=== PATIENT | male | born 1985 | race Caucasian/White ===

== ENCOUNTER 2018-06-16 14:41 | Inpatient (IN) | payer OTHER ==
[~2018-06-16] VITALS: Ht 175.3 cm; Wt 92.5 kg
--- NOTE | ~2018-06-16 | CON ---
[address] [address] CONSULTATION Name: NOEMI PANTOJA Room: [address] IN M.R.#: [id number] Admission: 06/16/18 Attend Phys: Humaira Holley MD Discharge: 06/17/18 Date of : 85 Report #: [id number] THIS REPORT FOR: //name// CC: [facility] physician/PCP Humaira Holley DATE OF SERVICE: 06/17/2018 HISTORY OF PRESENT ILLNESS: This is a 33-year-old male patient who was evaluated by me for seizures. This patient gives a history that he started having this seizure as a child. Initially, they were absent seizure and then they were generalized seizure. He used to see a neurologist. He said he does not know who the neurologist was. She indicated he had an MRI, which was unremarkable. His seizures were controlled with Depakote and then he could not afford the medication. He has not taken any medication for 3 years and he intermittently has seizure. He just stays home because he cannot afford any medical treatment. He came to Emergency Room and they started him on Keppra. He has no side effects from Keppra and he has not had any further seizure either. His seizure prior to this was about 8 months ago. REVIEW OF SYSTEMS: Indicate that he does have a history of seizure. He smokes marijuana, but does not do any other drugs. He has a known history of seizure with the workup in the past, which is not available to me. He does have a history of ADHD and bipolar. REVIEW OF SYSTEMS: A 14-point review of system was carried out and this was his relevant 14-point review of system. PAST MEDICAL HISTORY: Positive for seizure. FAMILY HISTORY: Negative for any early age stroke. SOCIAL HISTORY: He smokes, but does not drink any alcohol. PHYSICAL EXAMINATION: Indicate he is alert, responsive, able to follow simple and complex command. His speech, concentration, fund of knowledge and memory is at his baseline. Cranial nerve examination 2-12 looks unremarkable. He has symmetrical strength, sensation, reflexes and tone in all 4 extremities. There is no meningeal sign. There is no carotid bruit. I could not have a very good look at the patient's fundus, but I do not think there is any papilledema. There is no meningeal sign. There is no cerebellar sign. He is thinly built individual who does not have any dysmorphic features of eyes, ears and face. His last blood pressure was 88/46, respirations 16, pulse is 53, temperature is 97.8. LABORATORY DATA: Indicate a normal white count. Sodium is 143. [place] [address] CONSULTATION Name: NOEMI PANTOJA Room: [address] IN M.R.#: [id number] Admission: 06/16/18 Attend Phys: Humaira Holley MD Discharge: 06/17/18 Date of : 85 Report #: [id number] 8.4. He did have a CT scan of the head and C-spine, which was unremarkable. He indicates he had an MRI of the brain and that was also unremarkable. IMPRESSION: Seizure disorder because of noncompliance. RECOMMENDATION: 1. Since he is already on Keppra, I will leave him on Keppra and see how he does with it. 2. I did discuss with him that we can switch him to Depakote. He wants to try Keppra because he does not have to get the blood drawn. 3. We will see what further workup needs to be done and when was his MRI done and may like to repeat it depending upon when it was done. He is trying to find out from his mother and I also discussed with Dr. Holley. By: [id number] Richards MD /nt
--- NOTE | ~2018-06-16 | EEG ---
[address] [address] EEG STUDY REPORT Name: NOEMI PANTOJA Room: [address] IN [facility]#: [id number] Admission: 06/16/18 Attend Phys: Humaira Holley MD Discharge: Date of : 85 Report #: [id number] THIS REPORT FOR: //name// CC: FAM physician/PCP Humaira Holley DATE OF SERVICE: 06/17/2018 This patient is being evaluated for seizure. EEG was done by placing the electrode by standard 10-20 system of electrode placement. Both referential and sequential montages were used for recording. Background activity in this patient's EEG is about 10 Hz and 30 microvolt. The patient went to sleep that was associated with bilateral slowing and vertex sharp waves. Hyperventilation was unremarkable. The patient has repeated episode of polyspike activities which was generalized. IMPRESSION: This is an abnormal EEG, which would be consistent with a diagnosis of seizure disorder. Thank you very much for this referral. By: [id number] Richards MD /nt
[~2018-06-16 14:41] MED LIST: DEPAKOTE250 MG PO; DILANTIN100 MG PO
[2018-06-16 14:46] VITALS: BP 107/44
[2018-06-16] MEDS ORDERED: DEPAKOTE125 MG PO (14:53)
[2018-06-16 15:12] LABS: ABSOLUTE LYMPHOCYTES 1.6 thou/uL (0.8-5.3); ABSOLUTE MONOCYTES 0.4 thou/uL (0.0-1.2); ABSOLUTE NEUTROPHILS 6.1 thou/uL (1.6-8.1); BASOPHILS 0.3 %; EOSINOPHILS 0.5 %; HEMATOCRIT 40.8 % (42.0-52.0); HEMOGLOBIN 13.6 gm/dL (14.0-18.0); LYMPHOCYTES 19.7 %; MCH 31.3 pg (26.0-34.0); MCHC 33.3 g/dL (28.0-37.0); MCV 93.9 fL (80.0-100.0); MONOCYTES 4.5 %; MPV 7.6 fl. (7.2-11.1); NUCLEATED RBCS 0 /100WBC; PLATELET COUNT* 313 thou/uL (150-400); RBC 4.34 mil/uL (4.50-6.00); RDW-CV 13.2 % (10.5-14.5); WBC 8.1 thou/uL (4.0-11.0)
[2018-06-16 15:36] LABS: ANION GAP 6 mmol/L (7-16); BUN 12 mg/dL (7-18); CALCIUM 9.1 mg/dL (8.5-10.1); CHLORIDE 103 mmol/L (98-107); CO2 25 mmol/L (21-32); CREATININE 1.2 mg/dL (0.6-1.3); GLUCOSE 124 mg/dL (70-99); POTASSIUM 3.8 mmol/L (3.5-5.1); SODIUM 134 mmol/L (136-145); TROPONIN-I LEVEL <0.06 ng/mL (<0.06)
[2018-06-16 15:40] LABS: ALKALINE PHOSPHATASE 63 U/L (46-116); SGOT 16 U/L (15-37); SGPT 16 U/L (30-65); TOTAL BILIRUBIN 0.4 mg/dL (<0.1-1.0); TOTAL PROTEIN 7.4 g/dL (6.4-8.2)
--- NOTE | 2018-06-16 16:13 | EKG ---
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
[2018-06-16 16:28] LABS: AMP/METHAMP Negative (Negative); BARBITURATES Negative (Negative); BENZODIAZEPINES Negative (Negative); COCAINE Negative (Negative); METHADONE Negative (Negative); OPIATES Negative (Negative); PCP Negative (Negative); THC POSITIVE (Negative)
--- NOTE | 2018-06-16 16:38 | NUR ---
PT HAD A SEIZURE LASTING APPROXIMATLY 90 SECONDS. IV LORAZEPAM WAS ADMINISTERED.
--- NOTE | 2018-06-16 18:58 | NUR ---
PT ADMITTED FROM ED WITH SEIZURES. PT C/O SHOULDER PAIN. PT ORIENTED TO ROOM, CALL LIGHT IN REACH
[2018-06-16 19:02] VITALS: BP 102/51
[2018-06-16 19:08] VITALS: BP 102/51
[2018-06-16 20:00] VITALS: BP 95/58
[2018-06-17] VITALS: BP 93/53
--- NOTE | 2018-06-17 00:54 | NUR ---
PT ALERT ORIENTED. PT STATES HE IS SUPPOSE TO TAKE DEPAKOTE BUT HAS NOT FOR THE LAST 3 YEARS DUE TO FINANCIAL PROBLEMS. PT TAKES NO HOME MEDICATIONS. TELEMETRY SHOWS SR. ROOM KEPT WITH LOW LIGHTING, AT BED SIDE. PT STATES R SHOULDER HURTS WITH MOVEMENT. DR SANTOS NOTIFIED. TYLENOL ORDERED FOR PAIN. NS AT 100MLS/HR.
--- NOTE | 2018-06-17 03:16 | NUR ---
RESTING QUIETLY. PT SLEEPING EACH TIME NURSE ROUNDS. AT BS TOLD TO CALL NURSE IF PT NEEDS TYLENOL FOR PAIN. SEIZURE PRECAUTIONS IN PLACE.
[2018-06-17 04:00] VITALS: BP 94/52
[2018-06-17 05:00] LABS: CALCIUM 8.4 mg/dL (8.5-10.1); POTASSIUM 3.6 mmol/L (3.5-5.1)
[2018-06-17 05:35] LABS: URINE BILIRUBIN NEGATIVE (Negative); URINE BLOOD NEGATIVE (Negative); URINE CLARITY CLEAR; URINE COLOR YELLOW; URINE GLUCOSE-RANDOM NEGATIVE (Negative); URINE KETONES NEGATIVE (Negative); URINE LEUKOCYTES-REFLEX NEGATIVE (Negative); URINE NITRITE-REFLEX NEGATIVE (Negative); URINE PROTEIN 1+ (Negative); URINE SPECIFIC GRAVITY >= 1.030 (1.005-1.030); URINE UROBILINOGEN 0.2 E.U./dl (0.2-1.0)
[2018-06-17 08:05] VITALS: BP 88/46
--- NOTE | 2018-06-17 11:01 | NUR ---
ASSUMED CARE OF PT AT 0730. PT RESTING IN BED. PT A&0X4, COMPLAINS OF PAIN TO RIGHT SHOULDER. TREATED WITH PRN TYLENOL WITH PARTIAL RELIEF. PT TRACING SB WITH PAC'S ON THE SOFTWARE SPECIALIST. ON RA SAT UPPER 90'S. PT DENIES ANY SHORTNESS OF BREATH. AND SON AT BEDSIDE. IVF. PT UP SBA TO BATHROOM. PT GOAL FOR TODAY IS NEURO CONSULT IN PLACE AND REMAIN FREE FROM SEIZURES. AM ASSESSMENT CHARTED. MEDICATIONS PER JUN. PT REPOSITIONS SELF. HOURLY ROUNDING OBSERVED. BED IN LOW POSITION. BED ALARM IN PLACE. FALL PRECAUTIONS IN PLACE. SEIZURE PRECAUTIONS IN PLACE. CALL LIGHT WITHIN REACH. WILL CONTINUE PLAN OF CARE.
[2018-06-17 11:13] VITALS: BP 86/66
[2018-06-17] MEDS ORDERED: KEPPRA 500 MG500 M1 PO (11:28)
[2018-06-17 11:41] VITALS: BP 86/66
--- NOTE | 2018-06-17 11:42 | NUR ---
Pt is A&O. Resides at home with his and kids. Independent and active. No DME. No hx of HH or SNF. Goal is home at nm. Following.
[2018-06-17 15:48] VITALS: BP 80/57
--- NOTE | 2018-06-17 18:31 | NUR ---
NEURO SEEN PT TODAY. ORDERS RECEIVED FOR MRI AND EEG. REFER TO RESULTS. DISCHARGE ORDERS RECEIVED. DISCHARGE INSTRUCTIONS, CARE NOTES, SCRIPTS AND FOLLOW UP APPTS GIVEN TO PT. PT COMMUNICATES UNDERSTANDING OF DISCHARGE TEACHING. IV AND SCANNER OPERATOR REMOVED. PT DISCHARGED WITH ALL BELONGINGS AND PAPERWORK VIA WHEELCHAIR WITH NURSING STAFF TO SPOUSE OWN PERSONAL VEHICLE.
== END 2018-06-17 18:40 | disposition home or self-care (01) | DRG 101 ==
LOC: M.ERS 14:41 → M.TBA-ER 17:03 → M.2W 17:03
PROVIDERS: Family Medicine; ADMIT Family Medicine
DX: G40.909 Epilepsy, unspecified, not intractable, without status epilepticus (principal); F31.9 Bipolar disorder, unspecified; N18.2 Chronic kidney disease, stage 2 (mild); F90.9 Attention-deficit hyperactivity disorder, unspecified type; F17.210 Nicotine dependence, cigarettes, uncomplicated; Z91.14 Patient's other noncompliance with medication regimen; Z23 Encounter for immunization

== ENCOUNTER 2018-10-28 17:32 | Emergency (ER) | payer OTHER ==
[~2018-10-28] VITALS: Ht 175.3 cm; Wt 72.6 kg
[~2018-10-28 17:32] MED LIST changes: +DEPAKOTE125 MG PO; +KEPPRA 500 MG500 M1 PO
[2018-10-28] MEDS ORDERED: NAPROSYN500 MG PO (19:11)
[2018-10-28 19:19] VITALS: BP 112/62
== END 2018-10-28 19:20 | disposition home or self-care (01) ==
LOC: M.ERS 17:32
DX: S06.0X0A Concussion without loss of consciousness, initial encounter (principal); S01.01XA Laceration without foreign body of scalp, initial encounter; F31.9 Bipolar disorder, unspecified; F90.9 Attention-deficit hyperactivity disorder, unspecified type; W20.8XXA Other cause of strike by thrown, projected or falling object, initial encounter; Y93.89 Activity, other specified; Y92.89 Other specified places as the place of occurrence of the external cause; Y99.8 Other external cause status

== ENCOUNTER 2019-03-17 22:24 | Emergency (ER) | payer OTHER ==
[~2019-03-17] VITALS: Ht 175.3 cm; Wt 72.6 kg
[~2019-03-17 22:24] MED LIST changes: +NAPROSYN500 MG PO
[2019-03-17 23:19] LABS: ABSOLUTE LYMPHOCYTES 0.8 thou/uL (0.8-5.3); ABSOLUTE MONOCYTES 0.9 thou/uL (0.0-1.2); ABSOLUTE NEUTROPHILS 8.9 thou/uL (1.6-8.1); BASOPHILS 0.2 %; HEMATOCRIT 42.9 % (42.0-52.0); HEMOGLOBIN 14.9 gm/dL (14.0-18.0); LYMPHOCYTES 7.5 %; MCH 31.9 pg (26.0-34.0); MCHC 34.6 g/dL (28.0-37.0); MCV 92.1 fL (80.0-100.0); MONOCYTES 8.4 %; MPV 7.5 fl. (7.2-11.1); NUCLEATED RBCS 0 /100WBC; PLATELET COUNT* 340 thou/uL (150-400); POLYS 83.9 %; RBC 4.66 mil/uL (4.50-6.00); RDW-CV 12.8 % (10.5-14.5); WBC 10.6 thou/uL (4.0-11.0)
[2019-03-17 23:24] LABS: CALCIUM 9.2 mg/dL (8.5-10.1); CREATININE 1.1 mg/dL (0.6-1.3); POTASSIUM 3.7 mmol/L (3.5-5.1)
[2019-03-17 23:26] LABS: URINE BILIRUBIN NEGATIVE (Negative); URINE BLOOD NEGATIVE (Negative); URINE CLARITY CLEAR; URINE COLOR YELLOW; URINE GLUCOSE-RANDOM NEGATIVE (Negative); URINE KETONES NEGATIVE (Negative); URINE LEUKOCYTES-REFLEX NEGATIVE (Negative); URINE NITRITE-REFLEX NEGATIVE (Negative); URINE PROTEIN NEGATIVE (Negative); URINE SPECIFIC GRAVITY >= 1.030 (1.005-1.030); URINE UROBILINOGEN 0.2 E.U./dl (0.2-1.0)
[2019-03-17 23:28] LABS: ALBUMIN 3.9 g/dL (3.4-5.0); TOTAL BILIRUBIN 0.6 mg/dL (<0.1-1.0)
[2019-03-17 23:32] LABS: AMP/METHAMP Negative (Negative); BARBITURATES Negative (Negative); BENZODIAZEPINES Negative (Negative); COCAINE Negative (Negative); METHADONE Negative (Negative); OPIATES Negative (Negative); PCP Negative (Negative); THC POSITIVE (Negative)
[2019-03-17 23:55] LABS: INFLUENZA A ANTIGEN Negative (Negative); INFLUENZA B ANTIGEN Negative (Negative)
[2019-03-18] MEDS ORDERED: ZOFRAN ODT4 MG PO (00:42)
[2019-03-18] MEDS ORDERED: HYDROCODON-ACE1 EAC7 PO (00:42)
[2019-03-18 01:36] VITALS: BP 95/59
== END 2019-03-18 01:36 | disposition home or self-care (01) ==
LOC: M.ERS 22:24
PROVIDERS: Personal Emergency Response Attendant
DX: A08.4 Viral intestinal infection, unspecified (principal); R11.2 Nausea with vomiting, unspecified; F31.9 Bipolar disorder, unspecified; F90.9 Attention-deficit hyperactivity disorder, unspecified type; Z79.899 Other long term (current) drug therapy

== ENCOUNTER 2020-06-10 21:12 | Inpatient (IN) | payer OTHER ==
[~2020-06-10] VITALS: Ht 175.3 cm; Wt 70.3 kg
[~2020-06-10 21:12] MED LIST changes: +HYDROCODON-ACE1 EAC7 PO; +ZOFRAN ODT4 MG PO
[2020-06-10 21:17] VITALS: BP 94/44
[2020-06-10 21:50] LABS: HEMATOCRIT 39.5 % (42.0-52.0); HEMOGLOBIN 13.2 gm/dL (14.0-18.0); MCH 30.8 pg (26.0-34.0); MCHC 33.5 g/dL (28.0-37.0); MCV 92.1 fL (80.0-100.0); MPV 6.7 fl. (7.2-11.1); NUCLEATED RBCS 0 /100WBC; PLATELET COUNT* 282 thou/uL (150-400); RBC 4.29 mil/uL (4.50-6.00); WBC 16.7 thou/uL (4.0-11.0)
[2020-06-10 21:56] LABS: URINE BILIRUBIN NEGATIVE (Negative); URINE BLOOD NEGATIVE (Negative); URINE CLARITY CLEAR; URINE COLOR YELLOW; URINE GLUCOSE-RANDOM NEGATIVE (Negative); URINE KETONES NEGATIVE (Negative); URINE LEUKOCYTES-REFLEX NEGATIVE (Negative); URINE NITRITE-REFLEX NEGATIVE (Negative); URINE PROTEIN NEGATIVE (Negative); URINE UROBILINOGEN 0.2 E.U./dl (0.2-1.0)
[2020-06-10 21:59] LABS: CALCIUM 9.6 mg/dL (8.5-10.1); CREATININE 1.3 mg/dL (0.6-1.3); POTASSIUM 4.1 mmol/L (3.5-5.1)
[2020-06-10 22:03] LABS: ALBUMIN 4.1 g/dL (3.4-5.0); TOTAL BILIRUBIN 0.8 mg/dL (<0.1-1.0); TOTAL PROTEIN 7.2 g/dL (6.4-8.2)
[2020-06-10 23:30] LABS: ABSOLUTE LYMPHOCYTES 0.3 thou/uL (0.8-5.3); ABSOLUTE MONOCYTES 0.7 thou/uL (0.0-1.2); ABSOLUTE NEUTROPHILS 15.7 thou/uL (1.6-8.1); PLATELET ESTIMATE ADEQUATE
[2020-06-11] VITALS (16 sets, daily range): BP systolic 75–104; BP diastolic 36–75
[2020-06-11] MEDS ORDERED: ZOFRAN ODT4 MG PO (00:40)
[2020-06-11 05:38] LABS: INFLUENZA A ANTIGEN Negative (Negative); INFLUENZA B ANTIGEN Negative (Negative)
[2020-06-11 07:21] LABS: ABSOLUTE LYMPHOCYTES 1.2 thou/uL (0.8-5.3); ABSOLUTE MONOCYTES 0.9 thou/uL (0.0-1.2); BASOPHILS 0.3 %; EOSINOPHILS 0.1 %; HEMATOCRIT 36.7 % (42.0-52.0); HEMOGLOBIN 12.3 gm/dL (14.0-18.0); MCHC 33.5 g/dL (28.0-37.0); MCV 92.7 fL (80.0-100.0); MONOCYTES 8.6 %; MPV 6.9 fl. (7.2-11.1); NUCLEATED RBCS 0 /100WBC; PLATELET COUNT* 240 thou/uL (150-400); RBC 3.96 mil/uL (4.50-6.00); WBC 10.2 thou/uL (4.0-11.0)
[2020-06-11 07:33] LABS: CALCIUM 7.8 mg/dL (8.5-10.1); CREATININE 0.9 mg/dL (0.6-1.3); POTASSIUM 3.7 mmol/L (3.5-5.1); TOTAL BILIRUBIN 0.8 mg/dL (<0.1-1.0); TOTAL PROTEIN 5.8 g/dL (6.4-8.2)
[2020-06-11 10:45] LABS: AMP/METHAMP Negative (Negative); BARBITURATES Negative (Negative); BENZODIAZEPINES Negative (Negative); COCAINE Negative (Negative); METHADONE Negative (Negative); OPIATES Negative (Negative); PCP Negative (Negative); THC POSITIVE (Negative)
--- NOTE | 2020-06-11 17:31 | NUR ---
PT AFEBRILE, BP ON THE LOWER SIDE BUT ASYMPTOMATIC. DENIES ANY NAUSEA/VOMITING OR PAIN. DC ORDERS OBTAINED. DC EDUCATION PROVIDED. PT LEFT THE UNIT AT 1645.
== END 2020-06-11 16:45 | disposition home or self-care (01) | DRG 392 ==
LOC: M.ERS 21:12 → M.TBA-ER 06-11 01:44 → M.ICU 06-11 03:20
PROVIDERS: Emergency Medicine; Internal Medicine; ADMIT Internal Medicine; ATTEND Internal Medicine
DX: A08.4 Viral intestinal infection, unspecified (principal); E87.2 Acidosis; I95.9 Hypotension, unspecified; E86.0 Dehydration; F90.9 Attention-deficit hyperactivity disorder, unspecified type; G40.909 Epilepsy, unspecified, not intractable, without status epilepticus; F17.210 Nicotine dependence, cigarettes, uncomplicated; F12.90 Cannabis use, unspecified, uncomplicated; Z20.822 Contact with and (suspected) exposure to COVID-19; Z79.899 Other long term (current) drug therapy

== ENCOUNTER 2020-12-09 15:50 | Emergency (ER) | payer OTHER ==
[~2020-12-09] VITALS: Ht 175.3 cm; Wt 70.3 kg
[2020-12-09 16:08] VITALS: BP 125/81
== END 2020-12-09 17:14 | disposition home or self-care (01) ==
LOC: M.ERS 15:50
DX: R51.9 Headache, unspecified (principal); Z20.822 Contact with and (suspected) exposure to COVID-19; F31.9 Bipolar disorder, unspecified; G40.909 Epilepsy, unspecified, not intractable, without status epilepticus

== ENCOUNTER 2021-02-03 08:01 | Emergency (ER) | payer OTHER ==
[~2021-02-03] VITALS: Ht 175.3 cm; Wt 74.8 kg
[2021-02-03 08:52] VITALS: BP 100/62
== END 2021-02-03 08:52 | disposition home or self-care (01) ==
LOC: M.ERS 08:01
DX: S01.01XA Laceration without foreign body of scalp, initial encounter (principal); S09.90XA Unspecified injury of head, initial encounter; F90.9 Attention-deficit hyperactivity disorder, unspecified type; W19.XXXA Unspecified fall, initial encounter; Y93.89 Activity, other specified; Y92.89 Other specified places as the place of occurrence of the external cause; Y99.8 Other external cause status

== ENCOUNTER 2021-04-13 16:18 | Emergency (ER) | payer OTHER ==
[~2021-04-13] VITALS: Ht 175.3 cm; Wt 72.6 kg
[2021-04-13 18:10] LABS: INFLUENZA A ANTIGEN Negative (Negative); INFLUENZA B ANTIGEN Negative (Negative)
[2021-04-13] MEDS ORDERED: ZOFRAN ODT4 MG PO (18:27)
[2021-04-13 18:35] VITALS: BP 103/62
== END 2021-04-13 18:35 | disposition home or self-care (01) ==
LOC: M.ERS 16:18
PROVIDERS: Physician Assistant
DX: B34.9 Viral infection, unspecified (principal); R11.2 Nausea with vomiting, unspecified; R19.7 Diarrhea, unspecified; F90.9 Attention-deficit hyperactivity disorder, unspecified type